=== PATIENT | male | born 1975 | race Caucasian/White ===

== ENCOUNTER 2019-07-27 06:34 | Emergency (ER) | payer OTHER, SELFPAY ==
[2019-07-27 06:35] VITALS: BP 146/95; PULSE 80; RESP 20; TEMP 36.6; O2SAT 98; BMI 25.0
--- NOTE | 2019-07-27 06:43 | RAD_ITS ---
STUDY: X-RAY - ABDOMEN/PELVIS REASON FOR EXAM: Male, 43 years old. RT SIDE FLANK PAIN. HX K.S. TECHNIQUE: Single AP view of the abdomen / pelvis. COMPARISON: None. FINDINGS: Normal visualized lung bases. There is an unremarkable bowel gas pattern. There is no demonstrated free abdominal air. The visualized liver, spleen and kidneys are grossly normal in size and morphology. 3 mm calcific opacity in the right side of the pelvis which could represent a distal right ureteral stone. Correlation with stone protocol CT would be useful. Normal visualized osseous structures. RAD/Abdomen Single View IMPRESSION: Questionable 3 mm distal right ureteral stone in correlation with stone protocol CT would be useful. Electronically Signed: José Miguel Ornelas MD at 7:31 EDT Tel , Service support ,
[2019-07-27 06:46] VITALS: BP 146/95; PULSE 80; RESP 20; TEMP 36.6; O2SAT 98
--- NOTE | 2019-07-27 06:47 | ED.DCSUM_ITS ---
History of Present Illness Chief Complaint: Flank Pain Informant: Patient Onset: Days Context: Gradual Onset Timing: Waxes and wanes Current Severity: Moderate Maximum Severity: Severe Narrative: Patient presents with worsened right flank pain. Pain initially started 2 days ago. He was seen in the emergency room in [place]. Patient states he was initially told he did not see anything but later stated that they saw a stone in his bladder. Patient states pain was well controlled yesterday but earlier this morning woke up with severe right flank pain. He has had some nausea secondary to pain. He did take Toradol approximately 9 hours ago. Patient does report history of kidney stone x1. He was able to pass the stone at that time. - Past Medical History (1) Kidney stone Status: Chronic Past Medical History - Allergies and Home Meds Allergies/Adverse Reactions: Allergies No Known Allergies Allergy (Verified 07/27/19 06:37) Primary Care Physician: Sandra Guerrero,Out of [Primary Care Provider] - Prior records reviewed: Yes Lives: With Family Smoking Status: Never smoker Review of Systems General: Denies: Chills, Fever Eyes: Denies: Visual changes - bilaterally ENT: Denies: Bilateral ear pain Cardiovascular: Denies: Chest pain Respiratory: Denies: Dyspnea, Cough Gastrointestinal: Reports: Abdominal pain - Right flank, Nausea. Denies: Vomit ing Genitourinary: Denies: Dysuria, Hematuria Musculoskeletal: Denies: Extremity Pain Skin: Denies: Rash Neurological: Denies: Headache Hematologic: Denies: Easy bruising, Easy bleeding Allergy: Denies: Uticaria Physical Exam Vital Signs/Narrative: Vital Signs Temp Pulse Resp BP Pulse Ox 07/27/19 06:46 97.8 F 80 20 H 146/95 H 98 07/27/19 06:35 97.8 F 80 20 H 146/95 H 98 Inital Vital Signs reviewed: Yes General: Well nourished, Well developed Head: Normocephalic ENT: Moist mucous membranes Neck: Supple Cardiovascular: Regular rate, Regular rhythm Respiratory: No distress, CTA bilaterally Abdomen: Soft, Tender - Mild tenderness in the right lower quadrant. Back: CVA tenderness Skin: Normal color Neurological: Alert, Oriented x3 Psychological: Normal affect Diagnostic/Tx/Re-eval 07/27/19 06:43 KUB [Abdomen Single View] [RAD] Stat Laboratory Results 04/29/20 06:40 WBC 13.4 H RBC 5.04 Hgb 14.4 Hct 41.6 MCV 82.5 MCH 28.6 MCHC 34.6 RDW Std Deviation 36.5 RDW Coeff of Naomy 12.2 Plt Count 186 MPV 9.1 Immature Gran % (Auto) 0.300 Neut % (Auto) 81.0 H Lymph % (Auto) 9.9 L Summers % (Auto) 8.7 Eos % (Auto) 0.0 Baso % (Auto) 0.1 Absolute Neuts (auto) 10.8 H Absolute Lymphs (auto) 1.32 Nucleated RBC % 0 - Medical Decision Making I was able to pull up the urinalysis and CT report from the hospital in [place]. The emergency department summary is not available. CT scan reveals a 3 x 6 mm calcification in the right UVJ. There is mild right-sided hydronephrosis. Urinalysis showed hematuria with no evidence of infection. Patient is given morphine, Toradol, Zofran, and IV fluids. Patient be signed up to oncoming physician for repeat evaluation. I anticipate he will be able to be discharged with urology follow-up. ED Disposition - Plan for ED Patient: Disposition: Home or Assisted Living Diagnosis: Renal colic Referrals: [facility] Doctor,Out of [Primary Care Provider] -
[2019-07-27] MEDS: 0.9% Normal Saline 1,000 ML 250 ML IV (06:51)
[2019-07-27] MEDS: Ondansetron 4 MG/2 ML Vial IV (06:51)
[2019-07-27] MEDS: Ketorolac 30 MG/ML Syringe IV (06:52)
[2019-07-27] MEDS: Morphine 4 MG/ML Syringe IV (06:53)
[2019-07-27 07:03] LABS: Absolute Lymphocyte Count 1.32 X10^3/uL (0.83-4.51); Absolute Neutrophil Count 10.8 X10^3/uL (2.0-7.7); Basophil# 0.01 X10^3/uL; Basophil% 0.1 % (0-1); Hematocrit 41.6 % (40-54); Hemoglobin 14.4 g/dL (13.0-16.5); Lymphocyte # 1.32 X10^3/ul (4.0); Lymphocyte % 9.9 % (19-41); Mean Corp Hgb Conc 34.6 g/dL (32-36); Mean Corpuscular Hgb 28.6 pg (27.0-32.0); Mean Corpuscular Volume 82.5 fL (80-94); Mean Platelet Vol. 9.1 fl (6.2-12.0); Monocyte# 1.17 X10^3/uL; Monocyte% 8.7 % (0-10); NRBC Flagged by Analyzer 0 % (0-5); Neutrophil # 10.84 X10^3/uL (2.7-7.7); Platelet Count 186 K/mm3 (150-450); RBC Distribution Width CV 12.2 % (11.6-14.6); RBC Distribution Width SD 36.5 fl (35.1-43.9); Red Blood Count 5.04 M/mm3 (4.6-6.2); White Blood Count 13.4 K/mm3 (4.4-11.0)
[2019-07-27 07:24] LABS: Anion Gap 7 (5-15); BUN 19 mg/dL (7-18); BUN/Creat Ratio 11.8 RATIO (10-20); Calcium,Total 9.4 mg/dL (8.5-10.1); Chloride 102 mmol/L (98-107); Creatinine, Serum 1.61 mg/dL (0.70-1.30); EST Glomerular Filtration Rate 49 mL/min (>60); Est Glom Filt Rate - Afr Amer 60 mL/min (>60); Estimated Creatinine Clearance 56.06 ml/min; Glucose 104 mg/dL (74-106); Potassium 3.8 mmol/L (3.5-5.1); Sodium Level 136 mmol/L (136-145)
[2019-07-27 08:01] LABS: Mucous, Urine 0 SEEN /hpf (<or=2+); Squamous Epithelial Cells - UA 0 SEEN /hpf (0-5); White Blood Cells 0 SEEN /hpf (0-5)
[2019-07-27 08:08] LABS: Color, Urine Yellow (Yellow); Glucose, Dipstick Normal (Normal); Leukocyte Esterase-Dipstick Negative /ul (Negative); Nitrite-Dipstick Negative (Negative); Occult Blood-Urine Negative /ul (Negative); Protein-Dipstick Negative (Negative); Urine Bilirubin Dipstick Negative (Negative); Urine Clarity Clear (Clear); Urine Urobilinogen Normal (Normal)
[2019-07-27 08:10] LABS: Ketone-Dipstick 150 mg/dl (Negative)
[2019-07-27 08:18] LABS: Bacteria RARE /hpf (None Seen); Red Blood Cells-Urine 0-5 SEEN /hpf (0-5)
--- NOTE | 2019-07-27 08:23 | ED.VISSUMM ---
- ER Visit Summary Date of Service: 07/27/19 Chief Complaint: [] History of Present Illness: The patient is a 43 M [] Physical Examination: [] Test Results: [] Emergency Department Course and Treatment: [] Treatment Plan: [] Disposition: [] Impression: [] This note was generated with [employer] dictation software. It may contain incorrect words, spelling, and punctuation that were not noted in review of the chart prior to signing ED Disposition - Plan for ED Patient: Disposition: Home or Assisted Living Diagnosis: Hydronephrosis concurrent with and due to calculi of kidney and ureter Instructions: ED Renal Stone w Colic Prescriptions: Oxycodone HCl/Acetaminophen [Percocet 5/325] 1 tab PO Q6H PRN PRN 5 Days #20 tab PRN Reason: Flank pain Prescription Printed Referrals: [facility] Doctor,Out of [NON-STAFF] - 3-5 Days George Monet MD [STAFF PHYSICIAN] - 3-5 Days Additional Instructions: 1. Stop taking medicine you were prescribed, ketorolac, because this may make your kidney function worse i.e. cause renal failure 2. Contact your primary care physician at [facility] for replete blood work to assess kidney function in 3 to [address] Monet's office for follow-up
== END 2019-07-27 09:33 | disposition home or self-care (01) ==
LOC: ED 07:38
PROVIDERS: Emergency Provider Emergency Medicine; PCP Family Medicine; Referring Provider Emergency Medicine
DX: N13.2 Hydronephrosis with renal and ureteral calculous obstruction (principal); Z87.442 Personal history of urinary calculi
CPT/HCPCS: 74018; 80048; 81001; 85025; 96361; 96374; 96375; 99284; J7030; J2405

== ENCOUNTER 2019-07-29 11:01 | Day surgery (SDC) | payer OTHER, SELFPAY ==
[2019-07-29 11:16] VITALS: BP 138/82; PULSE 72; RESP 15; TEMP 37.3; O2SAT 98; BMI 24.6
[2019-07-29] MEDS: Lactated Ringers 1,000 ML 100 ML IV ×2 (11:32→15:15)
[2019-07-29] MEDS: Cefazolin 2 GM in 0.9% Normal Saline 100 ML IV (13:35)
--- NOTE | 2019-07-29 13:40 | HP.PCM_ITS ---
History of Present Illness Date of Admission: 07/29/19 Chief Complaint: Right ureteral calculi The patient is a 43 year old male with obstructing right ureteral calculi having significant pain wants to proceed with surgical removal of stone and stent placement. Past Medical History Past Medical History (Chronic Problems): Chronic Problems Kidney stone (Chronic) Allergies No Known Allergies Allergy (Verified 07/27/19 06:37) Home Medications: Ambulatory Orders Medication Instructions Recorded Oxycodone HCl/Acetaminophen 1 tab PO Q6H PRN PRN 5 Days #20 tab 07/27/19 [Percocet 5/325] Ciprofloxacin [Cipro] 500 mg PO BID #6 tab 07/29/19 Hydrocodone/Acetaminophen [[place] 1 each PO Q4H PRN PRN 5 Days #14 07/29/19 5-325 Tablet] tablet Surgical History: no surgical history Smoking Status: Never smoker Tobacco Use: Non-smoker Review of Systems Constitutional: Denies: Chills, Fever, Weight Change HEENT: Denies: Head Aches, Sinus Congestion, Sinus Drainage Cardiovascular: Denies: Chest Pain, Palpitations Respiratory: Denies: Cough, Shortness of breath at rest, Sputum production Gastrointestinal: Denies: Abdominal Pain, Nausea, Vomiting Genitourinary: Denies: Dysuria Musculoskeletal: Denies: Joint Pain, Joint Tenderness Skin: Denies: Rash, Wounds Neurological: Denies: Numbness, Tingling, Focal weakness Psychiatric: Denies: Anxiety, Depression, Homicidal Ideations, Suicidal Ideations Hematologic/ Lymphatic: Denies: Easy Bruising, Easy Bleeding VTE Information - Inpt Only VTE Present on Admission: No VTE Mechan Device Prophylaxis: SCD's - Physical Exam Vitals/I&O's: Vital Signs Temp Pulse Resp BP Pulse Ox 99.2 F H 72 15 138/82 H 98 07/29/19 11:16 07/29/19 11:16 07/29/19 11:16 07/29/19 11:16 07/29/19 11:16 Oxygen Delivery Method Room Air Weight: 73.6 kg Body Mass Index (BMI) 24.6 General: Alert, Oriented x3, Cooperative HEENT: Atraumatic, PERRLA, EOMI, Normocephalic Neck: Supple, No JVD, Negative Carotid Bruits Lungs: Clear to auscultation, Normal air movement Cardiovascular: Regular rate, No murmurs Abdomen: Bowel Sounds Present, Soft, Non Tender Extremities: No edema, Capillary Refill Less than 3 Seconds Skin: No rashes, No breakdown Musculoskeletal: No Tenderness to Palpation of Joints or Extremities Neurological: Cranial nerves II-XII grossly intact Psych/Mental Status: Normal Affect, Appropriate Current Medications Hydrocodone Bitart/Acetaminophen ([place] 5mg-325mg) 1 - 2 tablet PO Q6H PRN PRN PRN Reason: Pain Score 1-5/10 Lactated Ringer's () 1,000 mls @ 100 mls/hr IV .Q10H ROMA Last Admin: 07/29/19 11:32 Dose: 100 mls/hr Documented by: Ketorolac Tromethamine (Toradol (Bkc)) 15 mg IV X1 ONE Stop: 07/29/19 13:38 Metoclopramide HCl (Reglan) 10 mg IV X1 PRN PRN Reason: NAUSEA/VOMITING Assessment/Plan Plan to proceed with laser stone and stent right side. Essential Procedure Criteria Procedure Essential: Yes Criteria Note: On 06/14/2019 the [place] Department of Health ([facility]) Public Order signed by [facility] Director Dionne Guzman M.D., regarding the Management of Non- Essential Surgeries and Procedures for the purpose of preserving Personal Protective Equipment (PPE) and critical hospital capacity and resources within [place] went into effect as of 06/15/2019 at 5:00PM. According to the [facility] Public Order: This action will remain in full force and effect until the State of Emergency declared by the Governor no longer exists or the Director of the [facility] rescinds or modifies this Order.. This [facility] order stated all non-essential or elective surgeries and procedures that utilize PPE should be delayed unless there is undue risk to the current or future health of a patient. After reviewing the aforementioned [facility] Public Order and the patients clinical case, I have determined that the scheduled procedure meets the criteria to go forward. Risk to Patient if Procedure Delayed: Risk of rapidly worsening to severe symptoms if delayed
--- NOTE | 2019-07-29 13:41 | PCM.DC.URO ---
Discharge Diet: Light diet - advance as tolerated Discharge Activity: Return to Normal Activity Call your doctor if you observe: Fever of 101 or Higher Suture Line Care: Avoid Pulling/Pushing, Avoid Pinching/Bending Allergies/Adverse Reactions: Allergies No Known Allergies Allergy (Verified 07/27/19 06:37) Medications to take at Discharge Oxycodone HCl/Acetaminophen [Percocet 5/325] 1 tab PO Q6H PRN PRN 5 Days #20 tab 07/27/19 Ciprofloxacin [Cipro] 500 mg PO BID #6 tab 07/29/19 Hydrocodone/Acetaminophen [[place] 5-325 Tablet] 1 each PO Q4H PRN PRN 5 Days #14 tablet 07/29/19 The following prescriptions were given: Ciprofloxacin [Cipro] 500 mg PO BID #6 tab [id number] Hydrocodone/Acetaminophen [[place] 5-325 Tablet] 1 each PO Q4H PRN PRN 5 Days #14 tablet PRN Reason: Pain Or Fever Transmission [id number] Primary Care Physician: Hardy Mcelroy [Primary Care Provider] - Test Results: Test results from this visit will be discussed in further detail at your follow-up appointment, if applicable. Please Follow Up With: George Monet MD When: please call to make an appointment.
--- NOTE | 2019-07-29 13:53 | PCM.OPRPT ---
Report of Operation Date of Procedure: 07/29/19 Pre-Operative Diagnosis: Obstructing right distal ureteral calculi Post-Operative Diagnosis: Same Surgery/Procedure Performed:: Cystoscopy right stent placement Description of Surgical Findings:: 43-year-old male taken back to the operating room after smooth induction of general anesthesia he was placed supine on the table the penis and testicles are prepped and draped in usual sterile fashion went into the bladder with a 21 [place] rigid cystourethroscope the entire length the urethra is normal sphincter was normal prostate was normal inside the bladder he had some swelling in the right trigone over the right ureteral orifice the trigone otherwise was normal the bladder was otherwise normal cannulated the right ureteral orifice initially the wire would not go up the kidney file hitting the stent and then immediately after the wire get past the stone had a lot of brownish purulent material come out of the ureter. After I saw this abnormal brownish purulent urine decided to place a stent today for his safety so over the wire advanced a stent of 6 [place] over 26 cm stent but stent up into the right kidney pulled the wire the stent coiled in the kidney bladder good position. We will send a urine for culture sent home with antibiotics to bring back next week for laser of the stone. Type of Anesthesia:: General Drains: stent right side - Admit VTE Documentation VTE Present on Admission: No VTE Mechan Device Prophylaxis: SCD's
[2019-07-29 14:08] VITALS: BP 113/78; BP 138/82; PULSE 72; RESP 16; TEMP 36.6; O2SAT 100
[2019-07-29 14:15] VITALS: BP 118/73; BP 138/82; PULSE 70; RESP 18; O2SAT 100
[2019-07-29] MEDS: Ketorolac 15 MG/ML Vial IV (14:17)
[2019-07-29 14:31] VITALS: BP 117/76; BP 138/82; PULSE 73; RESP 18; TEMP 36.4; O2SAT 100
[2019-07-29 14:33] VITALS: BP 138/82
[2019-07-29 15:57] VITALS: BP 119/80; BP 138/82; PULSE 74; RESP 16; TEMP 36.9; O2SAT 96
== END 2019-07-29 15:58 | disposition home or self-care (01) ==
LOC: SDC 11:02 → AC 11:04
PROVIDERS: PCP Family Medicine; Referring Provider Urology; Visit Provider Urology
PROC: 0TJ98ZZ Inspection of Ureter, Via Natural or Artificial Opening Endoscopic (ICD-10-PCS; CPT 52352; principal; 2019-07-29 12:45)
DX: N13.2 Hydronephrosis with renal and ureteral calculous obstruction (principal); Z87.442 Personal history of urinary calculi
CPT/HCPCS: 52332; 76000; 87086; J7120; C1769; C2617; J2405

== ENCOUNTER → 2019-08-01 | Outpatient (CLI) | payer OTHER, SELFPAY ==
[2019-07-29 11:16] VITALS: BMI 24.6
== END | disposition home or self-care (01) ==
LOC: LABSPEC 16:51
PROVIDERS: PCP Family Medicine; Visit Provider Urology
DX: R82.998 Other abnormal findings in urine (principal)
CPT/HCPCS: 87086

== ENCOUNTER 2019-08-05 10:33 | Day surgery (SDC) | payer SELFPAY, OTHER ==
[2019-08-05 10:59] VITALS: BP 122/90; PULSE 63; RESP 16; TEMP 36.6; O2SAT 63; BMI 24.2
[2019-08-05] MEDS: Lactated Ringers 1,000 ML 100 ML IV (11:12)
--- NOTE | 2019-08-05 11:40 | PCM.HP.STD ---
Problem List (1) Right ureteral calculus Status: Acute History of Present Illness Date of Admission: 08/05/19 Chief Complaint: Right obstructing stone status post stent The patient is a 43 year old male who last week presented the office with obstructing stone in the distal right ureter he was taken to surgery at that point we placed a stent had a significant amount of pus and debris from the cyst from the right side so we did not proceed with ureteroscopy or laser, his pain is much better is been doing well we now proceed with ureteroscopy and extraction of the stent and extraction of the stone possible another stent will be placed if necessary. Past Medical History Past Medical History (Chronic Problems): Chronic Problems Kidney stone (Chronic) Allergies No Known Allergies Allergy (Verified 08/05/19 10:55) Surgical History: no surgical history Smoking Status: Never smoker Tobacco Use: Non-smoker Review of Systems Constitutional: Denies: Chills, Fever, Weight Change HEENT: Denies: Head Aches, Sinus Congestion, Sinus Drainage Cardiovascular: Denies: Chest Pain, Palpitations Respiratory: Denies: Cough, Shortness of breath at rest, Sputum production Gastrointestinal: Denies: Abdominal Pain, Nausea, Vomiting Genitourinary: Denies: Dysuria Musculoskeletal: Denies: Joint Pain, Joint Tenderness Skin: Denies: Rash, Wounds Neurological: Denies: Numbness, Tingling, Focal weakness Psychiatric: Denies: Anxiety, Depression, Homicidal Ideations, Suicidal Ideations Hematologic/ Lymphatic: Denies: Easy Bruising, Easy Bleeding VTE Information - Inpt Only VTE Present on Admission: No VTE Mechan Device Prophylaxis: SCD's Patient Problems: Active and Suspected Problems Right ureteral calculus (Acute) - Physical Exam Vitals/I&O's: Vital Signs Temp Pulse Resp BP Pulse Ox 97.8 F 63 16 122/90 H 63 08/05/19 10:59 08/05/19 10:59 08/05/19 10:59 08/05/19 10:59 08/05/19 10:59 Oxygen Delivery Method Room Air Weight: 72.3 kg Body Mass Index (BMI) 24.2 General: Alert, Oriented x3, Cooperative HEENT: Atraumatic, PERRLA, EOMI, Normocephalic Neck: Supple, No JVD, Negative Carotid Bruits Lungs: Clear to auscultation, Normal air movement Cardiovascular: Regular rate, No murmurs Abdomen: Bowel Sounds Present, Soft, Non Tender Extremities: No edema, Capillary Refill Less than 3 Seconds Skin: No rashes, No breakdown Musculoskeletal: No Tenderness to Palpation of Joints or Extremities Neurological: Cranial nerves II-XII grossly intact Psych/Mental Status: Normal Affect, Appropriate Current Medications Acetaminophen (Tylenol) 650 mg PO Q4H PRN PRN PRN Reason: Pain Score 1-5/10 Lactated Ringer's () 1,000 mls @ 100 mls/hr IV .Q10H ROMA Last Admin: 08/05/19 11:12 Dose: 100 mls/hr Documented by: Metoclopramide HCl (Reglan) 10 mg IV X1 PRN PRN Reason: NAUSEA/VOMITING Oxycodone HCl (Oxyir) 5 - 10 mg PO Q6H PRN PRN PRN Reason: Pain Score 4-10/10 Assessment/Plan All Active Problems Right ureteral calculus (Acute) Plan to proceed with right ureteroscopy extraction and laser of stone and possible stent on the right side.
--- NOTE | 2019-08-05 11:42 | DCINST_ITS ---
Discharge Diet: No Restrictions Discharge Activity: Return to Normal Activity, May Not Drive - for 2 days. Additional Activity Instructions:: Please be aware that pain medications may cause nausea. You should typically eat light foods as you take your pain medication. Pain medication may cause constipation, if this is a problem for you, please discuss with your doctor. Allergies/Adverse Reactions: Allergies No Known Allergies Allergy (Verified 08/05/19 10:55) Primary Care Physician: Hardy Mcelroy [Primary Care Provider] - Test Results: Test results from this visit will be discussed in further detail at your follow- up appointment, if applicable. Please Follow Up With: George Monet MD When: please call to make an appointment.
[2019-08-05] MEDS: Cefazolin 2 GM in 0.9% Normal Saline 100 ML IV (11:51)
--- NOTE | 2019-08-05 12:15 | PCM.OPRPT ---
Problem List (1) Right ureteral calculus Status: Acute Report of Operation Date of Procedure: 08/05/19 Pre-Operative Diagnosis: Right ureteral calculi status post stent Post-Operative Diagnosis: Same Surgery/Procedure Performed:: Cystoscopy, right ureteroscopy basket extraction of stone and removal of stent Description of Surgical Findings:: 43-year-old male who last week presented with obstructing stone and severe renal colic at that point stent was placed low debris and pus was released from the kidney because of the potential for infection we did not perform ureteroscopy he comes back now for procedure to remove the stone has been feeling much better, Patient was taken back to the operating room to smooth induction of general anesthesia is placed upon the table is placed in dorsolithotomy position penis and testicles are prepped and draped in usual sterile fashion went into the bladder with a 21 [place] rigid cystourethroscope grabbed existing stent pulled out the meatus put a wire through the stent left in place and then went next the wire with a SlimLine rigid ureteroscope I first was low difficult to get into the ureter so use a second wire to cannulate the ureter and this allowed me to get in to the ureter and then I grabbed the basket and used a basket to extract a small distal stone in intact fashion. The stones extracted in atraumatic fashion handed off as a specimen was sent for chemical analysis. Bladder was drained stent was removed wire was removed did not leave a stent and since it was a pretty straightforward extraction and will give him some Toradol for pain. Type of Anesthesia:: General Drains: none - Admit VTE Documentation VTE Present on Admission: No VTE Mechan Device Prophylaxis: SCD's
[2019-08-05 12:22] VITALS: BP 113/79; BP 122/90; PULSE 85; RESP 16; TEMP 36.8; O2SAT 95
[2019-08-05 12:30] VITALS: BP 109/80; BP 122/90; PULSE 66; RESP 16; O2SAT 97
[2019-08-05] MEDS: Ketorolac 30 MG/ML Syringe IV (12:31)
[2019-08-05 12:45] VITALS: BP 105/76; BP 122/90; PULSE 61; RESP 16; O2SAT 97
--- NOTE | 2019-08-05 12:45 | CALC_PTH ---
PATIENT: HILARY DIXON [place] [facility] [facility] [place][id number] AGE/SX: 43/M ROOM: RE08/05/[address]: Dr. George Monet MD : [id number] BED: DIS: 08/05/2019 SPEC #: [id number] RECD: 08/05/19 14:23 STATUS: SARIAH SUSANA #: [id number] JUAN JOSÉ: 08/05/19 12:[address]: George Monet DEPT: SURGICAL PATHOLOGY RECD BY: Chelsea Xiao ENTERED: 08/08/19 08:49 SP TYPE: Calculi OTHR DR: Dr. Hardy Mcelroy MD Tissues: CALCULI Procedures: Surgery Specimen Level I HEADER OPERATION: Cystoscopy, right ureteroscopy, basket extraction PRE-OP DIAGNOSIS: Right ureteral calculus TISSUE SUBMITTED: Right ureteral calculus GROSS DIAGNOSIS A Fragment of stone, clinically right ureteral stone, submitted for analysis. SJ:jimi 08/08/19 COMMENT The calculus is submitted in its entirety for chemical stone analysis. The results from this study will be reported separately. GROSS DESCRIPTION Received is one container labeled with the patient's name and designated right ureteral stone for analysis. The specimen consists of a fragment of brownish-black stone measuring 0.3 x 0.3 x 0.2 cm. The entire specimen is submitted for stone analysis. / SJ:jimi 08/08/19 CPT: 52567
[2019-08-05 12:57] VITALS: BP 122/90; BP 123/98; PULSE 63; RESP 16; TEMP 37.6; O2SAT 99
[2019-08-05 13:28] VITALS: BP 122/90; BP 123/90; PULSE 63; RESP 14; TEMP 36.6; O2SAT 100
[2019-08-17 14:12] LABS: Source RIGHT URETER
== END 2019-08-05 14:05 | disposition home or self-care (01) ==
LOC: SDC 10:33 → AC 10:33
PROVIDERS: PCP Family Medicine; Referring Provider Urology; Visit Provider Urology
PROC: 0TJ98ZZ Inspection of Ureter, Via Natural or Artificial Opening Endoscopic (ICD-10-PCS; CPT 52352; principal; 2019-08-05 12:35)
DX: N20.1 Calculus of ureter (principal); Z87.442 Personal history of urinary calculi
CPT/HCPCS: 52352; 82360; 88300; J7120; C1769; J2405